=== PATIENT | female | born 1975 | race Caucasian/White ===

== ENCOUNTER 2025-07-13 21:00 | Emergency (ER) | payer BC ==
[2025-07-13 21:47] LABS: Absolute Lymphocytes (CBC) 1.7 K/uL (0.7-4.9); Hematocrit 40.1 % (36.0-45.0); Hemoglobin 14.0 g/dL (12.0-15.0); MCH 32.7 pg (27.0-35.0); MCHC 34.9 g/dL (32.0-36.0); MCV 93.8 fL (80-100); MPV 8.2 fL (7.6-11.3); Nucleated RBC Absolute Count 0.0 (0-0); Nucleated Red Blood Cells % 0.1 % (0-0); RBC Red Blood Cell Count 4.27 M/uL (3.86-4.86); White Blood Count 8.70 thou/uL (4.3-10.9)
[2025-07-13 21:52] LABS: PT Prothrombin Time 12.7 SECONDS (10-13.0); Protime INR 1.13
[2025-07-13] MEDS ORDERED: FAMOTIDINE 20 MG/2 ML VIAL IV ONE (22:03)
[2025-07-13] MEDS ORDERED: ONDANSETRON 4 MG/2 ML VIAL ONE (22:03)
[2025-07-13] MEDS ORDERED: MORPHINE 4 MG/ML SYR ONE (22:03)
[2025-07-13] MEDS ORDERED: NA CHLORIDE 0.9% 250 ML ONE (22:04)
[2025-07-13] MEDS ORDERED: CIPROFLOXACIN 400mg IV 400 MG/200 ML BAG IV ONE (22:04)
[2025-07-13] MEDS ORDERED: NA CHLORIDE 0.9% 1,000 ML ONE (22:04)
[2025-07-13 22:05] LABS: ALT/SGPT 23 U/L (13-56); AST/SGOT 16 U/L (15-37); Albumin 3.9 g/dL (3.4-5.0); Albumin/Globulin Ratio 1.1 (1.1-1.8); Alkaline Phosphatase 69 U/L (45-117); Anion Gap 8.7 mEq/L (5.0-15.0); BUN Blood Urea Nitrogen 16 mg/dL (7-18); Globulin 3.6 g/dL (2.3-3.5); Glucose Level 101 mg/dL (74-106); Lipase 82 U/L (13-75); Magnesium 2.4 mg/dL (1.6-2.4); NT PRO-BNP 45 pg/mL (<125); Potassium 3.7 mEq/L (3.5-5.1); Troponin High Sensitivity 3.0 pg/mL (<58.9)
[2025-07-13] MEDS ORDERED: METRONIDAZOLE 500mg IVPB 500 MG/100 ML BAG IV ONE (22:05)
[2025-07-13 22:07] LABS: Bilirubin Indirect, Calculated 0.2 mg/dL (0.2-0.8)
--- NOTE | 2025-07-13 22:18 | RAD REPORT ---
EXAM: Chest Single View HISTORY: 50 years Female PAIN COMPARISON: No prior exams FINDINGS: LUNGS/PLEURA: The lungs are clear. No pleural effusions or pneumothorax. No pulmonary edema. CARDIAC/MEDIASTINUM: The cardiac silhouette is within normal limits. UPPER ABDOMEN: No significant abnormality. BONES: No acute abnormality. LINES/TUBES/OTHER: N/A IMPRESSION: No evidence of acute cardiopulmonary disease.
--- NOTE | 2025-07-13 22:42 | RAD REPORT ---
EXAMINATION: Abdomen Pelvis W Contrast CLINICAL INDICATION: Female, 50 years old.ABD PAIN TECHNIQUE: CT abdomen and pelvis was performed, after the administration of IV contrast, as per [facility] protocol. Axial, sagittal and coronal reconstructions were obtained. One or more of the following dose reduction techniques were used: Automated exposure control, adjustment of the mA and/o r kV according to patient size, and/or iterative reconstruction. Unless otherwise specified, incidental findings do not require dedicated imaging follow-up. [id number]. COMPARISON: No prior exams FINDINGS: LOWER CHEST: No acute process identified.No significant pericardial effusion. Mild circumferential th ickening of the distal esophagus which could reflect esophagitis. UPPER GI: No significant abnormality. LIVER: Benign appearing low density liver lesions. No suspicious mass. GALLBLADDER/BILE DUCTS: No biliary ductal dilatation.? PANCREAS: Diffuse prominence of the pancreatic duct. No pancreatic mass identified. SPLEEN: Unremarkable. ADRENALS: No adrenal masses. KIDNEYS AND URETERS: No hydronephrosis.Low density and/or too small to characterize renal lesions whi ch are statistically benign.Bilateral renal scarring. Bilateral urothelial enhancement. No ureteral calculi. ABDOMINAL AORTA AND OTHER VESSELS: Mild atherosclerotic changes. PERITONEUM: No abnormal free fluid. No free air. LYMPH NODES: No pathologic lymphadenopathy. ABDOMINAL WALL: Unremarkable SMALL BOWEL/COLON: Small bowel has normal course and caliber. No colonic wall thickening or pericolon ic inflammatory changes.Normal appendix. Mild diverticulosis without diverticulitis. URINARY BLADDER: Underdistended but grossly unremarkable. REPRODUCTIVE ORGANS: No pathologic process. MUSCULOSKELETAL: No acute or suspicious osseous abnormality. ADDITIONAL FINDINGS: None. IMPRESSION: Bilateral urothelial thickening and enhancement could reflect either ascending urinary tract infectio n or inflammation. Chronic renal scarring probably related to prior bouts of pyelonephritis. No hydronephrosis. Normal appendix.
[2025-07-13] MEDS ORDERED: CEFTRIAXONE 2000 MG/VIAL ONE (23:12)
[2025-07-13 23:44] LABS: Sqamous Epithelial <5 /HPF (None Seen); Urine Culture Reflex Order REFLEXED; Urine Microscopic Reflex YN ORDER UMIC; Urine WBC Clump Rare /HPF (None Seen)
--- NOTE | 2025-07-13 23:59 | EDPHYS ---
Physician Documentation [facility] Name: Gabriela Puentes Age: 50 yrs Sex: Female : 1975 Arrival Date: 07/13/2025 Time: 21:00 Bed 18 Private MD: NAHOMI Physician Adelso Schneider HPI: 07/13 21:57 This 50 yrs old Female presents to ER via Ambulatory with complaints of sharon Abdominal Pain. 21:57 The patient presents with abdominal pain right lower quadrant, in the left lower sharon quadrant. Onset: The symptoms/episode began/occurred 2 day(s) ago. The patient presents to the emergency department with diarrhea, that is intermittent, abdominal pain, and does not radiate. Onset: The symptoms/episode began/occurred 2 day(s) ago. Possible causes: unknown. The symptoms are aggravated by nothing. The symptoms are alleviated by nothing. The symptoms are alleviated by. Associated signs and symptoms: Pertinent positives: abdominal pain, diarrhea. Associated signs and symptoms: none. Historical: - Allergies: 21:49 No Known Allergies; jj7 - PMHx: 21:49 Irritable bowel syndrome; DIVERTICULOSIS; Hypertensive disorder; Hypercholesterolemia; jj7 Asthma; Rheumatoid arthritis; Migraine; Diabetes mellitus; - PSHx: 21:51 section; RIGHT SHOULDER; LEFT ANKLE; jj7 - Immunization history:: Adult Immunizations up to date. - Infectious Disease History:: Denies. - Family history:: not pertinent. ROS: 21:57 Constitutional: Negative for fever, chills, and weight loss, Eyes: Negative for injury, sharon pain, redness, and discharge, ENT: Negative for injury, pain, and discharge, Neck: Negative for injury, pain, and swelling, Cardiovascular: Negative for chest pain, palpitations, and edema, Respiratory: Negative for shortness of breath, cough, wheezing, and pleuritic chest pain, Back: Negative for injury and pain, : Negative for injury, bleeding, discharge, and swelling, MS/Extremity: Negative for injury and deformity, Skin: Negative for injury, rash, and discoloration, Neuro: Negative for headache, weakness, numbness, tingling, and seizure, Psych: Negative for depression, anxiety, suicide ideation, homicidal ideation, and hallucinations, Allergy/Immunology: Negative for hives, rash, and allergies, Endocrine: Negative for neck swelling, polydipsia, polyuria, polyphagia, and marked weight changes, Hematologic/Lymphatic: Negative for swollen nodes, abnormal bleeding, and unusual bruising, 21:57 Abdomen/GI: Positive for abdominal pain, abdominal cramps, Exam: 21:57 Constitutional: This is a well developed, well nourished patient who is awake, alert, sharon and in no acute distress. Head/Face: Normocephalic, atraumatic. Eyes: Pupils equal round and reactive to light, extra-ocular motions intact. Lids and lashes normal. Conjunctiva and sclera are non-icteric and not injected. Cornea within normal limits. Periorbital areas with no swelling, redness, or edema. ENT: Nares patent. No nasal discharge, no septal abnormalities noted. Tympanic membranes are normal and external auditory canals are clear. Oropharynx with no redness, swelling, or masses, exudates, or evidence of obstruction, uvula midline. Mucous membranes moist. Neck: Trachea midline, no thyromegaly or masses palpated, and no cervical lymphadenopathy. Supple, full range of motion without nuchal rigidity, or vertebral point tenderness. No Meningismus. Chest/axilla: Normal chest wall appearance and motion. Nontender with no deformity. No lesions are appreciated. Cardiovascular: Regular rate and rhythm with a normal S1 and S2. No gallops, murmurs, or rubs. Normal PMI, no JVD. No pulse deficits. Respiratory: Lungs have equal breath sounds bilaterally, clear to auscultation and percussion. No rales, rhonchi or wheezes noted. No increased work of breathing, no retractions or nasal flaring. Back: No spinal tenderness. No costovertebral tenderness. Full range of motion. Skin: Warm, dry with normal turgor. Normal color with no rashes, no lesions, and no evidence of cellulitis. MS/ Extremity: Pulses equal, no cyanosis. Neurovascular intact. Full, normal range of motion., bilateral aka Neuro: Awake and alert, GCS 15, oriented to person, place, time, and situation. Cranial nerves II-XII grossly intact. Motor strength 5/5 in all extremities. Sensory grossly intact. Cerebellar exam normal. Normal gait. Psych: Awake, alert, with orientation to person, place and time. Behavior, mood, and affect are within normal limits. 21:57 ECG was reviewed by the Attending Physician. 21:57 Abdomen/GI: Inspection: distension, that is moderate, Bowel sounds: normal, Palpation: moderate abdominal tenderness, in the right lower quadrant and left lower quadrant, Vital Signs: 21:05 BP 148 / 96; Pulse 100; Resp 18; Temp 99.1; Pulse Ox 100% ; Weight 63.5 kg; Height 5 jj7 ft. 3 in. ; Pain 5/10; 22:03 BP 141 / 78; Pulse 90; Resp 18; Pulse Ox 98% ; kt5 23:05 BP 123 / 76; Pulse 86; Resp 18; Pulse Ox 99% ; kt5 23:54 BP 120 / 72; Pulse 90; Resp 18; Pulse Ox 97% ; kt5 07/14 00:51 BP 128 / 68; Pulse 89; Resp 18 S; Temp 99.4; Pulse Ox 99% on R/A; kt5 07/13 21:05 Body Mass Index 24.80 (63.50 kg, 160.02 cm) [facility] 07/13 21:05 Pain Scale: Adult [facility] MDM: 07/13 21:05 Medical Screening Exam initiated sharon 22:01 Differential diagnosis: diverticulitis, viral gastroenteritis, gastroenteritis, sharon diverticulitis, non-specific abd pain, pancreatitis. Data reviewed: vital signs, nurses notes, lab test result(s), EKG, radiologic studies, CT scan, plain films. Consideration of Admission/Observation Patient was admitted/placed on observation. Escalation of care including admission/observation considered. I considered the following discharge prescriptions or medication management in the emergency department Medications were administered in the Emergency Department. See MAR. Independent interpretation of the following test(s) in the Emergency Department EKG: See my EKG interpretation above. Historians other than the Patient: Spouse/Significant Other: spouse well informed. Care significantly affected by the following chronic conditions: Diabetes, Hypertension, Obesity, diverticulosis, ibs. Counseling: I had a detailed discussion with the patient and/or guardian regarding the historical points, exam findings, and any diagnostic results supporting the discharge/admit diagnosis, lab results, radiology results. 07/13 21:07 Order name: Basic Metabolic Panel; Complete Time: 22:12 [facility] 07/13 21:07 Order name: CBC with Diff; Complete Time: 22:12 [facility] 07/13 21:07 Order name: LFT's; Complete Time: 22:12 [facility] 07/13 21:07 Order name: Magnesium; Complete Time: 22:12 [facility] 07/13 21:07 Order name: NT PRO-BNP; Complete Time: 22:12 [facility] 07/13 21:07 Order name: PT-INR; Complete Time: 22:12 [facility] 07/13 21:07 Order name: Troponin HS; Complete Time: 22:12 [facility] 07/13 21:07 Order name: Lipase; Complete Time: 22:12 [facility] 07/13 22:46 Order name: UA Rfx Marvin Cult if indicated; Complete Time: 00:02 [facility] 07/14 00:04 Order name: Urine Culture EDMS 07/13 21:07 Order name: XRAY Chest (1 view); Complete Time: 22:45 [facility] 07/13 21:07 Order name: CT Abd/Pelvis - IV Contrast Only; Complete Time: 22:45 [facility] 07/13 21:07 Order name: Cardiac monitoring; Complete Time: 21:47 [facility] 07/13 21:07 Order name: EKG - Nurse/Tech; Complete Time: 21:47 [facility] 07/13 21:07 Order name: IV Saline Lock; Complete Time: 21:38 [facility] 07/13 21:07 Order name: Labs collected and sent; Complete Time: 21:38 [facility] 07/13 21:07 Order name: O2 Per Protocol; Complete Time: 21:38 [facility] 07/13 21:07 Order name: O2 Sat Monitoring; Complete Time: 21:38 [facility] EC:57 Rate is 85 beats/min. Rhythm is regular. QRS [place] is Normal. ME interval is normal. QRS sharon interval is normal. QT interval is normal. No Q waves. T waves are Normal. No ST changes noted. Clinical impression: Normal ECG, NSR w/ Non-specific ST/T Changes, and No evidence of ischemia. Interpreted by me. Reviewed by me. Administered Medications: 22:18 Drug: NS 0.9% IV 1000 ml IV at 1000 ml once; to be given as a bolus over 60 minutes kt5 Route: IV; Rate: 1000 ml; Site: right antecubital; 22:57 Follow up: Response: No adverse reaction; IV Status: Completed infusion; IV Intake: kt5 1000ml 22:18 Drug: Famotidine IVP 20 mg IVP once; dilute with 10 mL 0.9% NaCl; give over 2 minutes kt5 Route: IVP; Site: right antecubital; 22:57 Follow up: Response: No adverse reaction; Nausea is decreased kt5 22:18 Drug: morphine IVP or IV 4 mg IVP once over 4 mins Route: IVP; Infused Over: 4 mins; kt5 Site: right antecubital; 22:56 Follow up: Response: No adverse reaction; Pain is decreased kt5 22:18 Drug: Ondansetron IVP 8 mg IVP once; over 2 minutes Route: IVP; Site: right antecubital;kt5 22:56 Follow up: Response: No adverse reaction; Nausea is decreased kt5 22:18 Drug: metroNIDAZOLE IVPB 500 mg 100 ml IVPB at 200 ml/hr once over 30 mins Volume: 100 kt5 ml; Route: IVPB; Rate: 200 ml/hr; Infused Over: 30 mins; Site: right antecubital; 23:42 Follow up: Response: No adverse reaction kt5 22:48 CANCELLED (Duplicate Order): rocephin1 grams IV at per protocol once; Given slow IV sharon push per pharmacy instructions 23:28 Drug: Ciprofloxacin IVPB 400 mg 200 ml IVPB once over 60 mins Volume: 200 ml; Route: kt5 IVPB; Infused Over: 60 mins; Site: right antecubital; 07/14 00:54 Follow up: Response: No adverse reaction; IV Status: Completed infusion kt5 07/13 23:28 Drug: Rocephin IV 2 grams IV at per protocol once; Given slow IV push per pharmarcy kt5 instructions Route: IV; Rate: per protocol; Site: right antecubital; 23:42 Follow up: Response: No adverse reaction kt5 07/14 00:29 Drug: Promethazine IM 25 mg IM once Route: IM; Site: right deltoid; kt5 00:45 Follow up: Response: No adverse reaction; Nausea is decreased kt5 00:29 Drug: Cefdinir PO Suspension 300 mg PO once Route: PO; kt5 00:45 Follow up: Response: No adverse reaction kt5 Disposition Summary: 07/13/25 23:59 Discharge Ordered Notes: Location: Home sharon Problem: new sharon Symptoms: have improved sharon Condition: Stable sharon Diagnosis - Abdominal tenderness sharon - Diarrhea, unspecified sharon - UTI/ Urinary tract infection, site not specified sharon Followup: sharon - With: Private Physician - When: 2 - 3 days - Reason: Recheck today's complaints, Continuance of care, Re-evaluation by your physician Followup: sharon - With: Capo Hernadez MD - When: 1 - 2 days - Reason: Recheck today's complaints, Re-evaluation by your physician Discharge Instructions: - Discharge Summary Sheet [facility] - Abdominal Pain, Adult [facility] - Food Choices to Help Relieve Diarrhea, Adult [facility] - Diarrhea, Adult [facility] - Urinary Tract Infection, Adult sharon - Urinary Tract Infection, Adult, [id number] sharon - Abdominal Pain, Adult, [id number] sharon - Diarrhea, Adult, [id number] [facility] Forms: - Medication Reconciliation Form [facility] - Antibiotic Education [facility] - Prescription Opioid Use [facility] - Patient Portal Instructions [facility] - Leadership Thank You Letter [facility] Prescriptions: - ondansetron 4 mg Oral Tablet,disintegrating - take 1 tablet ORAL route every 6 hours as needed for nausea and vomiting; 20 sharon tablet; Refills: 0, Product Selection Permitted - cefdinir 300 mg Oral capsule - take 1 capsule ORAL route 2 times per day for 3 days; 6 capsule; Refills: 0, [facility] Product Selection Permitted - Flagyl 500 mg Oral tablet - take 1 tablet ORAL route every 8 hours for 7 days; 21 tablet; Refills: 0, [facility] Product Selection Permitted - Pepcid 20 mg Oral Tablet - take 1 tablet ORAL route every 12 hours for 10 days; 20 tablet; Refills: 0, [facility] Product Selection Permitted - Cipro 500 mg Oral Tablet - take 1 tablet ORAL route every 12 hours for 7 days; 14 tablet; Refills: 0, [facility] Product Selection Permitted - dicyclomine 20 mg Oral tablet - take 1 tablet ORAL route 4 times per day; 28 tablet; Refills: 0, Product [facility] Selection Permitted Signatures: Dispatcher [employer] EDAdelso Milan MD MD cha Johnson, Juwairiyah, RN RN jj7 Leyda Boone RN RN kt5 Corrections: (The following items were deleted from the chart) 07/13 21:12 21:12 BASIC METABOLIC PANEL+C.LAB.BRZ ordered. EDMS EDMS 21:12 21:12 CBC+H.LAB.BRZ ordered. EDMS EDMS 21:12 21:12 HEPATIC FUNCTION+C.LAB.BRZ ordered. EDMS EDMS 21:12 21:12 MAGNESIUM+C.LAB.BRZ ordered. EDMS EDMS 21:12 21:12 PROBNP+C.LAB.BRZ ordered. EDMS EDMS 21:12 21:12 PROTIME (+INR)+COAG.LAB.BRZ ordered. EDMS EDMS 21: 21:12 Troponin High Sensitivity+C.LAB.BRZ ordered. EDMS EDMS 21:12 21:12 LIPASE+C.LAB.BRZ ordered. EDMS EDMS 21:12 21:12 Chest Single View+RAD.RAD.BRZ ordered. EDMS EDMS 21:13 21:13 Abdomen Pelvis W Con+CT.RAD.BRZ ordered. EDMS EDMS 22:48 22:46 Rocephin IV 1 grams IV at per protocol once; Given slow IV push per pharmacy sharon instructions ordered. sharon
--- NOTE | 2025-07-13 23:59 | ER ---
Nurse's Notes [facility] Name: Gabriela Puentes Age: 50 yrs Sex: Female : 1975 Arrival Date: 07/13/2025 Time: 21:00 Bed 18 Private MD: Diagnosis: Abdominal tenderness;Diarrhea, unspecified;UTI/ Urinary tract infection, site not specified Presentation: 07/13 21:05 Chief complaint: Patient states: LOWER ABD PAIN STARTED TODAY. STATES SHE HAD DIARRHEA jj7 AND NAUSEA YESTERDAY BUT IT RESOLVED. Coronavirus screen: At this time, the client does not indicate any symptoms associated with coronavirus-19. Ebola Screen: No symptoms or risks identified at this time. Initial Sepsis Screen: Does the patient meet any 2 criteria? HR > 90 bpm. Yes Does the patient have a suspected source of infection? No. Patient's initial sepsis screen is negative. Risk Assessment: Do you want to hurt yourself or someone else? Patient reports no desire to harm self or others. Onset of symptoms was July 13, 2025. 21:05 Method Of Arrival: Ambulatory [facility] 21:05 Acuity: MARCELLE 3 jj7 Triage Assessment: 21:05 General: Appears in no apparent distress. comfortable, Behavior is calm, cooperative, jj7 appropriate for age. Pain: Complains of pain in right lower quadrant and left lower quadrant. Neuro: Level of Consciousness is awake, alert, obeys commands, Oriented to person, place, time, situation, Appropriate for age. Cardiovascular: Capillary refill < 3 seconds Patient's skin is warm and dry. Respiratory: No deficits noted. Airway is patent Respiratory effort is even, unlabored, Respiratory pattern is regular, symmetrical. GI: Abdomen is flat, non-distended, Abd is soft Abdomen is tender to palpation in right lower quadrant and left lower quadrant Reports lower abdominal pain. : No deficits noted. Historical: - Allergies: 21:49 No Known Allergies; jj7 - PMHx: 21:49 Irritable bowel syndrome; DIVERTICULOSIS; Hypertensive disorder; Hypercholesterolemia; jj7 Asthma; Rheumatoid arthritis; Migraine; Diabetes mellitus; - PSHx: 21:51 section; RIGHT SHOULDER; LEFT ANKLE; jj7 - Immunization history:: Adult Immunizations up to date. - Infectious Disease History:: Denies. - Family history:: not pertinent. Screenin:10 [facility] ED Fall Risk Assessment (Adult) History of falling in the last 3 months, kt5 including since admission No falls in past 3 months (0 pts) Confusion or Disorientation No (0 pts) Intoxicated or Sedated No (0 pts) Impaired Gait No (0 pts) Mobility Assist Device Used No (0 pt) Altered Elimination No (0 pt) Score/Fall Risk Level 0 - 2 = Low Risk Oriented to surroundings, Maintained a safe environment. Abuse screen: Denies threats or abuse. Nutritional screening: No deficits noted. Tuberculosis screening: No symptoms or risk factors identified. Assessment: 21:10 General: Appears in no apparent distress. comfortable, Behavior is calm, cooperative, kt5 appropriate for age. Pain: Complains of pain in right lower quadrant and left lower quadrant Pain does not radiate. Pain currently is 6 out of 10 on a pain scale. Quality of pain is described as sharp, Is intermittent. Neuro: No deficits noted. Bal Agitation-Sedation Scale (RASS): 0 - Alert and Calm Level of Consciousness is awake, alert, obeys commands, Oriented to person, place, time, situation, Appropriate for age. Cardiovascular: No deficits noted. Denies chest pain, Heart tones S1 S2 present Capillary refill < 3 seconds Clubbing of nail beds is absent JVD is absent Pulses are all present. Edema is absent. Respiratory: No deficits noted. Airway is patent Trachea midline Respiratory effort is even, unlabored, Respiratory pattern is regular, symmetrical. GI: No deficits noted. Abdomen is flat, non-distended, Bowel sounds present X 4 quads. Abd is soft X 4 quads Abdomen is tender to palpation in right lower quadrant and left lower quadrant Reports diarrhea, intolerance of fluids, intolerance of food, nausea. : No deficits noted. No signs and/or symptoms were reported regarding the genitourinary system. Derm: No deficits noted. No signs and/or symptoms reported regarding the dermatologic system. Skin is intact, is healthy with good turgor, Skin is dry, Skin is pink, warm \T\ dry. Musculoskeletal: No deficits noted. No signs and/or symptoms reported regarding the musculoskeletal system. 21:58 General: tech at for pcxr. kt5 22:03 Reassessment: Patient appears in no apparent distress at this time. Patient and/or kt5 family updated on plan of care and expected duration. Pain level reassessed. Patient is alert, oriented x 3, equal unlabored respirations, skin warm/dry/pink. 22:19 General: pt to ct with tech. kt5 22:33 General: pt back from ct, tolerated well. kt5 23:05 Reassessment: Patient appears in no apparent distress at this time. Patient and/or kt5 family updated on plan of care and expected duration. Pain level reassessed. Patient is alert, oriented x 3, equal unlabored respirations, skin warm/dry/pink. Patient denies pain at this time. Patient states feeling better. Patient states symptoms have improved. 23:54 Reassessment: Patient appears in no apparent distress at this time. Patient and/or kt5 family updated on plan of care and expected duration. Pain level reassessed. Patient is alert, oriented x 3, equal unlabored respirations, skin warm/dry/pink. Patient denies pain at this time. Patient states feeling better. Patient states symptoms have improved. 07/14 00:51 Reassessment: Patient appears in no apparent distress at this time. Patient and/or kt5 family updated on plan of care and expected duration. Pain level reassessed. Patient is alert, oriented x 3, equal unlabored respirations, skin warm/dry/pink. Patient denies pain at this time. Patient states feeling better. Patient states symptoms have improved. Vital Signs: 07/13 21:05 BP 148 / 96; Pulse 100; Resp 18; Temp 99.1; Pulse Ox 100% ; Weight 63.5 kg; Height 5 [facility] ft. 3 in. ; Pain 5/10; 22:03 BP 141 / 78; Pulse 90; Resp 18; Pulse Ox 98% ; kt5 23:05 BP 123 / 76; Pulse 86; Resp 18; Pulse Ox 99% ; kt5 23:54 BP 120 / 72; Pulse 90; Resp 18; Pulse Ox 97% ; kt5 07/14 00:51 BP 128 / 68; Pulse 89; Resp 18 S; Temp 99.4; Pulse Ox 99% on R/A; kt5 07/13 21:05 Body Mass Index 24.80 (63.50 kg, 160.02 cm) [facility] 07/13 21:05 Pain Scale: Adult [facility] ED Course: 07/13 21:04 Patient arrived in ED. mr 21:05 Adelso Schneider MD is Attending Physician. [facility] 21:05 Arm band placed on right wrist. Patient placed in an exam room, on a stretcher. jj7 21:10 No provider procedures requiring assistance completed. kt5 21:10 Bed in low position. Call light in reach. Side rails up X 1. Client placed on kt5 continuous cardiac and pulse oximetry monitoring. NIBP monitoring applied. monitoring coordinator on. Door closed. Noise minimized. Warm blanket given. Pillow given. 21:17 Radiology exam delayed due to lab results not completed at this time. (BUN/Creatinine) jc4 IV insertion attempt and/or patient not having appropriate IV at this time. 21:37 Initial lab(s) drawn, by me, sent to lab. Inserted saline lock: 20 gauge in right rk3 antecubital area, using aseptic technique. Blood collected. Flushed with 10 mL NS. 21:47 EKG done, by ED staff, reviewed by Adelso Schneider MD. rk3 21:49 Triage completed. jj7 21:57 Leyda Boone, RN is Primary Nurse. kt5 21:59 Lipase Sent. kt5 21:59 Basic Metabolic Panel Sent. kt5 21:59 LFT's Sent. kt5 21:59 Magnesium Sent. kt5 21:59 NT PRO-BNP Sent. kt5 21:59 Troponin HS Sent. kt5 22:08 XRAY Chest (1 view) In Process Unspecified. EDMS 22:30 CT Abd/Pelvis - IV Contrast Only In Process Unspecified. EDMS 23:28 UA Rfx Marvin Cult if indicated Sent. kt5 23:59 Capo Hernadez MD is Referral Physician. [facility] Administered Medications: 22:18 Drug: NS 0.9% IV 1000 ml IV at 1000 ml once; to be given as a bolus over 60 minutes kt5 Route: IV; Rate: 1000 ml; Site: right antecubital; 22:57 Follow up: Response: No adverse reaction; IV Status: Completed infusion; IV Intake: kt5 1000ml 22:18 Drug: Famotidine IVP 20 mg IVP once; dilute with 10 mL 0.9% NaCl; give over 2 minutes kt5 Route: IVP; Site: right antecubital; 22:57 Follow up: Response: No adverse reaction; Nausea is decreased kt5 22:18 Drug: morphine IVP or IV 4 mg IVP once over 4 mins Route: IVP; Infused Over: 4 mins; kt5 Site: right antecubital; 22:56 Follow up: Response: No adverse reaction; Pain is decreased kt5 22:18 Drug: Ondansetron IVP 8 mg IVP once; over 2 minutes Route: IVP; Site: right antecubital;kt5 22:56 Follow up: Response: No adverse reaction; Nausea is decreased kt5 22:18 Drug: metroNIDAZOLE IVPB 500 mg 100 ml IVPB at 200 ml/hr once over 30 mins Volume: 100 kt5 ml; Route: IVPB; Rate: 200 ml/hr; Infused Over: 30 mins; Site: right antecubital; 23:42 Follow up: Response: No adverse reaction kt5 22:48 CANCELLED (Duplicate Order): rocephin1 grams IV at per protocol once; Given slow IV sharon push per pharmacy instructions 23:28 Drug: Ciprofloxacin IVPB 400 mg 200 ml IVPB once over 60 mins Volume: 200 ml; Route: kt5 IVPB; Infused Over: 60 mins; Site: right antecubital; 07/14 00:54 Follow up: Response: No adverse reaction; IV Status: Completed infusion kt5 07/13 23:28 Drug: Rocephin IV 2 grams IV at per protocol once; Given slow IV push per [employer] kt5 instructions Route: IV; Rate: per protocol; Site: right antecubital; 23:42 Follow up: Response: No adverse reaction kt5 07/14 00:29 Drug: Promethazine IM 25 mg IM once Route: IM; Site: right deltoid; kt5 00:45 Follow up: Response: No adverse reaction; Nausea is decreased kt5 00:29 Drug: Cefdinir PO Suspension 300 mg PO once Route: PO; kt5 00:45 Follow up: Response: No adverse reaction kt5 Medication: 07/13 21:10 VIS not applicable for this client. kt5 Intake: 22:57 IV: 1000ml; Total: 1000ml. kt5 Outcome: 23:59 Discharge ordered by MD. herrera 07/14 00:52 Discharged to home ambulatory, kt5 Condition: improved Discharge instructions given to patient, family, Instructed on discharge instructions, follow up and referral plans. Demonstrated understanding of instructions, follow-up care, medications, Prescriptions given X 6 00:54 Patient left the ED. kt5 Addendum: 07/18/2025 16:49 Addendum: Culture Results: Positive urine culture. Bacteria is resistant to, has s s intermediate sensitivity, or is not tested against prescribed antibiotics. Report given to [facility] for further evaluation and then to poultry debeaker for follow up with patient. Phone call Attempt #1 Recommendation by Yanna Sorto NP to stop taking Cipro and to Began Macrobid 100 mg PO BID x 7 days. Pt called and notified and verbalizes understanding. Pt plans to follow up with PCP tomorrow. Signatures: Dispatcher [employer] EDMS Adelso Schneider MD MD cha Rivera, Nevaeh, Reg Reg mr Shannon Sherman, RN RN Anthony Roberts RN RN jj7 Jacques Cortes jc4 Antoinette Carnes rk3 Leyda Boone, RN RN kt5 Corrections: (The following items were deleted from the chart) 07/14 00:52 07/13 23:54 BP 123 / 76; Pulse 90bpm; Resp 18bpm; Pulse Ox 97%; kt5 kt5
[2025-07-14] MEDS ORDERED: PROMETHAZINE INJ 25 MG/ML AMP ONE (00:26)
[2025-07-14] MEDS ORDERED: CEFDINIR 300 MG CAP PO ONE (00:27)
[2025-07-14 01:05] VITALS: BP 128/68; TEMP 99.4; O2SAT 99
== END 2025-07-14 00:54 | disposition home or self-care (01) ==
LOC: ER 21:00
DX: R19.7 Diarrhea, unspecified (principal); N39.0 Urinary tract infection, site not specified
CPT/HCPCS: 96365; 96361; 93005; 87088; 85025; 81001; 87086; 80048; 36415; 83735; 85610; 80076; 87077; 87186; 84484; 83690; 83880; 74177; 71045; 96375; 96372; 99285; Q9967; J2550; J2405; J0696; J0744; J7050; J7030